=== PATIENT | male | born 1985 | race African-American/Black ===

== ENCOUNTER 2017-01-22 20:52 | Emergency (ER) | payer OTHER ==
[~2017-01-22] VITALS: Ht 167.6 cm; Wt 67.1 kg
--- NOTE | 2017-01-22 21:00 | NUR ---
BIB FOR SI, SELF-INFLICTED SUPERFICIAL BILATERAL WRIST LACERATIONS W/ RAZOR X TODAY, ADMITS TO MARIJUANA USE TODAY. NOTED CALM AND DIRECTABLE. VSS. SEEN BY FOR SRIKANTH. SI PRECUATIONS IMPLEMENTED. SAFETY AND COMFORT MEASURES PROVIDED. WILL MONITOR.
[2017-01-22] MEDS ORDERED: TDAP [DIPH/PERTUSSIS/TET] 0.5 ML VIAL IM ONE ×2 (21:30→21:52)
[2017-01-22 21:43] LABS: BASOPHILS % (AUTO) 0.6 % (0.0-2.0); EOSINOPHILS # (AUTO) 0.2 /CMM (0.0-0.7); EOSINOPHILS % (AUTO) 2.1 % (0.0-6.0); HEMATOCRIT 40 % (39-51); HEMOGLOBIN 13.7 g/dL (13.5-17.5); LYMPHOCYTES # (AUTO) 1.9 /CMM (0.8-4.8); LYMPHOCYTES % (AUTO) 24.4 % (20.0-44.0); MEAN CORPUSCULAR HEMOGLOBIN 31 PG (26.0-33.0); MEAN CORPUSCULAR HGB CONC 34 g/dl (31.0-36.0); MEAN CORPUSCULAR VOLUME 91 fL (80-96); MONOCYTES # (AUTO) 0.6 /CMM (0.1-1.30); NEUTROPHILS # (AUTO) 5.1 /CMM (1.8-8.9); NEUTROPHILS % (AUTO) 64.9 % (43.0-81.0); PLATELET COUNT (AUTO) 303 /CMM (150-450); RDW COEFFICIENT OF VARIATION 12.7 (11.5-15.0); WHITE BLOOD COUNT (AUTO) 7.8 K/uL (4.3-11.0)
[2017-01-22 21:47] LABS: CALCIUM, SERUM 9.6 mg/dL (8.5-10.1); CARBON DIOXIDE 26 mmol/L (21-32); CHLORIDE 108 mmol/L (98-107); CREATININE 1.4 mg/dL (0.6-1.3); GLUCOSE 124 mg/dL (74-106); POTASSIUM 4.6 mmol/L (3.5-5.1); SODIUM SERUM 142 mmol/L (136-145); UREA NITROGEN, BLOOD 20 mg/dL (7-18)
[2017-01-22 21:53] LABS: ACETAMINOPHEN < 2 ug/ml (10-30); ALANINE AMINOTRANSFERASE 62 U/L (12-78); ALBUMIN 3.8 g/dL (3.4-5.0); ALCOHOL, BLOOD < 3 mg/dL (0-0); ALKALINE PHOSPHATASE 98 U/L (46-116); ASPARTATE AMINOTRANSFERASE 26 U/L (15-37); BILIRUBIN,TOTAL 0.2 mg/dL (0.2-1.0); SALICYLATE 0.7 mg/dL (2.8-20.0); TOTAL PROTEIN, SERUM 7.8 g/dL (6.4-8.2)
--- NOTE | 2017-01-22 23:52 | NUR ---
RECEIVED REPORT FROM MOY RUEDA RN FOR COTINUITY OF CARE.
[2017-01-22 23:54] LABS: APPEARANCE,URINE CLEAR (CLEAR); BILIRUBIN,URINE NEGATIVE (NEGATIVE); BLOOD, URINE NEGATIVE Ery/uL (NEGATIVE); KETONES,URINE TRACE (NEGATIVE); LEUKOCYTE ESTERASE ,URINE NEGATIVE (NEGATIVE); NITRITE, URINE NEGATIVE (NEGATIVE); PROTEIN,URINE NEGATIVE (NEGATIVE); UGLUCOSE NEGATIVE (NEGATIVE); UROBILINOGEN,URINE 0.2 EU/dL (0.2)
[2017-01-22 23:57] LABS: COLOR,URINE DARK YELLOW (YELLOW)
[2017-01-23 00:06] LABS: BACTERIA,URINE Few /HPF (None Seen); RBC,URINE 0-2 /HPF (0-2); SQUAMOUS EPITHELIAL CELL,UR Few /HPF (None Seen); WBC,URINE 0-2 /HPF (0-3)
[2017-01-23 00:07] LABS: MUCUS,URINE Few /LPF (None Seen); SPERM,URINE Few /HPF (None Seen)
--- NOTE | 2017-01-23 01:45 | NUR ---
Patient discharged to [facility] in stable condition. Written and verbal after care instructions given. Patient verbalizes understanding of instruction. pt transported with ems in stable condition. pt left hospital in stable condition with ems.
[2017-01-23 02:04] VITALS: BP 120/60
== END 2017-01-23 02:06 ==
LOC: ER 20:57
DX: R45.851 Suicidal ideations (principal); N28.9 Disorder of kidney and ureter, unspecified; F32.9 Major depressive disorder, single episode, unspecified; F41.9 Anxiety disorder, unspecified; F20.9 Schizophrenia, unspecified; F17.200 Nicotine dependence, unspecified, uncomplicated; Z59.0 Homelessness
CPT/HCPCS: 36415; 80048; 80076; 80305; 80329; 81001; 85025; 90471; 90715; 99285; 99406; A4606; G0480 ×2; Z7610; 81000-TC

== ENCOUNTER 2017-03-03 00:45 | Emergency (ER) | payer OTHER ==
[~2017-03-03] VITALS: Ht 165.1 cm; Wt 99.8 kg
[2017-03-03 01:23] VITALS: BP 129/62
== END 2017-03-03 03:21 | disposition left against medical advice (07) ==
LOC: ER 00:46
DX: Z53.21 Procedure and treatment not carried out due to patient leaving prior to being seen by health care provider (principal)
CPT/HCPCS: A4606; Z7610

== ENCOUNTER 2024-11-24 00:45 | Inpatient (IN) | payer MEDICARE, OTHER ==
[~2024-11-24] VITALS: Ht 172.7 cm; Wt 57.4 kg
[2024-11-24 02:09] LABS: PLATELET COUNT (AUTO) 330 K/uL (150-450); RED BLOOD CELL COUNT(AUTO) 4.49 MIL/uL (4.5-6.0); RED CELL DISTRIBUTION WIDTH 14.9 % (11.5-15.0); WHITE BLOOD COUNT (AUTO) 10.0 K/uL (4.3-11.0)
[2024-11-24 02:14] LABS: CALCIUM, SERUM 9.9 mg/dL (8.5-10.1); CREATININE 1.0 mg/dL (0.6-1.3); SODIUM SERUM 145 mmol/L (136-145); UREA NITROGEN, BLOOD 12 mg/dL (7-18)
[2024-11-24 02:21] LABS: ASPARTATE AMINOTRANSFERASE 14 U/L (15-37); TOTAL PROTEIN, SERUM 8.6 g/dL (6.4-8.2)
[2024-11-24 02:25] LABS: APPEARANCE,URINE CLEAR (CLEAR); BLOOD, URINE TRACE-INTA Ery/uL (NEGATIVE); LEUKOCYTE ESTERASE ,URINE NEGATIVE (NEGATIVE); NITRITE, URINE NEGATIVE (NEGATIVE); UGLUCOSE NEGATIVE (NEGATIVE)
[2024-11-24 02:38] LABS: ADD URINE CULTURE NO; AMPHETAMINE, URINE NEGATIVE (NEGATIVE); BARBITURATE, URINE NEGATIVE (NEGATIVE); BENZODIAZEPINE, URINE NEGATIVE (NEGATIVE); COCCAINE, URINE NEGATIVE (NEGATIVE); OPIATE, URINE NEGATIVE (NEGATIVE); SQUAMOUS EPITHELIAL CELL,UR 0-2 /HPF (None Seen)
[2024-11-24 02:39] LABS: CANNABINOID, URINE POSITIVE (NEGATIVE)
[2024-11-24 04:52] LABS: SERUM AMMONIA 30 umol/L (11-32)
[2024-11-24 06:27] LABS: VALPROIC ACID 89 ug/mL (50-100)
[2024-11-24 06:33] LABS: SERUM AMMONIA 32 umol/L (11-32)
[2024-11-24 06:36] LABS: VALPROIC ACID 74 ug/mL (50-100)
[2024-11-24 09:10] VITALS: O2SAT 99
[2024-11-24 10:00] VITALS: BP 128/90; TEMP 98.1; O2SAT 99
[2024-11-24] MEDS ORDERED: BUSP15TA3 PO (11:13)
[2024-11-24] MEDS ORDERED: DIVA250T4 PO (11:13)
[2024-11-24 12:00] VITALS: BP 131/87; TEMP 98.4; O2SAT 99
[2024-11-24] MEDS ORDERED: ACETAMINOPHEN 325 MG TABLET PO PRN (12:30)
[2024-11-24] MEDS ORDERED: Z GUARD REMEDY 4 OZ OINT TP PRN (12:30)
[2024-11-24] MEDS ORDERED: ONDANSETRON HCL/PF 4 MG/2 ML VIAL IVP PRN (12:30)
[2024-11-24] MEDS: IV NS 0.9% 1,000 ML IV PRN (12:55)
[2024-11-24] MEDS: ENOXAPARIN SODIUM 40 MG/0.4 ML DISP.SYRIN SQ SCH (12:55)
[2024-11-24] MEDS: LEVOCARNITINE 330 MG TABLET PO SCH (14:24)
[2024-11-24 20:53] VITALS: BP 140/85; TEMP 99; O2SAT 99
[2024-11-25 07:00] VITALS: BP 160/108; TEMP 99; O2SAT 100
[2024-11-25 07:45] LABS: PLATELET COUNT (AUTO) 275 K/uL (150-450); RED BLOOD CELL COUNT(AUTO) 3.93 MIL/uL (4.5-6.0); RED CELL DISTRIBUTION WIDTH 14.5 % (11.5-15.0); WHITE BLOOD COUNT (AUTO) 7.2 K/uL (4.3-11.0)
[2024-11-25 07:47] LABS: ASPARTATE AMINOTRANSFERASE 14.0 U/L (15-37); CALCIUM, SERUM 8.8 mg/dL (8.5-10.1); CREATININE 0.9 mg/dL (0.6-1.3); PHOSPHORUS 3.0 mg/dL (2.5-4.9); SODIUM SERUM 136.0 mmol/L (136-145); TOTAL PROTEIN, SERUM 6.8 g/dL (6.4-8.2); UREA NITROGEN, BLOOD 11.0 mg/dL (7-18)
[2024-11-25 08:08] LABS: LDL 69.0 mg/dL (0-99)
== END 2024-11-25 10:30 | disposition left against medical advice (07) | DRG 918 ==
LOC: ER 00:50 → TELE 09:24
PROVIDERS: ADMIT Nurse Practitioner Acute Care; ATTEND Nurse Practitioner Acute Care
DX: T43.592A Poisoning by other antipsychotics and neuroleptics, intentional self-harm, initial encounter (principal); Z59.00 Homelessness unspecified; F20.9 Schizophrenia, unspecified; F31.9 Bipolar disorder, unspecified; T42.6X2A Poisoning by other antiepileptic and sedative-hypnotic drugs, intentional self-harm, initial encounter; Y92.89 Other specified places as the place of occurrence of the external cause; F41.9 Anxiety disorder, unspecified; I10 Essential (primary) hypertension; Z53.29 Procedure and treatment not carried out because of patient's decision for other reasons; Z87.891 Personal history of nicotine dependence
CPT/HCPCS: 36415; 80048-TC; 80053-TC; 80061-TC; 80076-TC; 80164-TC; 81001; 82140-TC; 83735-TC; 84100-TC; 85025-TC; 87081-TC; A4223; G0378; J1650; J7030

== ENCOUNTER 2024-11-25 18:09 | Emergency (ER) | payer OTHER ==
[~2024-11-25] VITALS: Ht 172.7 cm; Wt 59.0 kg
[~2024-11-25 18:09] MED LIST: BUSP15TA3 PO; DIVA250T4 PO
[2024-11-25 18:46] LABS: APPEARANCE,URINE CLEAR (CLEAR); BLOOD, URINE Trace-intact Ery/uL (NEGATIVE); LEUKOCYTE ESTERASE ,URINE Negative (NEGATIVE); NITRITE, URINE NEGATIVE (NEGATIVE); UGLUCOSE Negative (NEGATIVE)
[2024-11-25 18:50] LABS: ADD URINE CULTURE NO; SQUAMOUS EPITHELIAL CELL,UR 0-2 /HPF (None Seen)
[2024-11-25 18:52] LABS: PLATELET COUNT (AUTO) 288 K/uL (150-450); RED BLOOD CELL COUNT(AUTO) 3.89 MIL/uL (4.5-6.0); RED CELL DISTRIBUTION WIDTH 14.8 % (11.5-15.0); WHITE BLOOD COUNT (AUTO) 9.4 K/uL (4.3-11.0)
[2024-11-25 18:55] LABS: CALCIUM, SERUM 9.3 mg/dL (8.5-10.1); CREATININE 0.9 mg/dL (0.6-1.3); SODIUM SERUM 142 mmol/L (136-145); UREA NITROGEN, BLOOD 13 mg/dL (7-18)
[2024-11-25 19:00] LABS: AMPHETAMINE, URINE NEGATIVE (NEGATIVE); BARBITURATE, URINE NEGATIVE (NEGATIVE); BENZODIAZEPINE, URINE NEGATIVE (NEGATIVE); COCCAINE, URINE NEGATIVE (NEGATIVE); OPIATE, URINE NEGATIVE (NEGATIVE)
[2024-11-25 19:00] LABS: ASPARTATE AMINOTRANSFERASE 11 U/L (15-37); TOTAL PROTEIN, SERUM 7.4 g/dL (6.4-8.2)
[2024-11-25 19:01] LABS: CANNABINOID, URINE POSITIVE (NEGATIVE)
[2024-11-25 22:54] VITALS: BP 119/88; TEMP 98.3; O2SAT 98
== END 2024-11-25 22:55 ==
LOC: ER 18:14
DX: R45.851 Suicidal ideations (principal); F17.200 Nicotine dependence, unspecified, uncomplicated; I11.9 Hypertensive heart disease without heart failure; Z79.899 Other long term (current) drug therapy; Z20.822 Contact with and (suspected) exposure to COVID-19
CPT/HCPCS: 36415; 80048-TC; 80076-TC; 81001; 85025-TC; 98960